=== PATIENT | female | born 1965 | race Caucasian/White ===

== ENCOUNTER 2018-02-17 12:32 | Emergency (ER) | payer MEDICAID, OTHER ==
[2018-02-17] MEDS ORDERED: Clindamycin HCl 150 MG Cap PO ONE (12:33)
[2018-02-17] MEDS ORDERED: cefTRIAXone 1 GM Vial IM ONE (12:37)
[2018-02-17] MEDS ORDERED: Lidocaine 1% 20 ML MDV ONE (12:39)
--- NOTE | 2018-02-17 12:43 | EDM.PDOC ---
ED HPI GENERAL MEDICAL PROBLEM - General Chief Complaint: Lower Extremity Injury/Pain Stated Complaint: RED SWOLLEN FOOT Time Seen by Provider: 02/17/18 12:40 Source of Information: Reports: Patient History Limitations: Reports: No Limitations - History of Present Illness INITIAL COMMENTS - FREE TEXT/NARRATIVE: Jennifer is a 52 year old female who presents to the ED with c/o redness, swelling , and warmth of her right lower extremity. She believes the redness started a few days ago but is unsure. She believes she first noticed it night. Woke up Monday morning and her leg was red. She reports the redness has spread some and is now more tender to touch. She denies any fever, chills, chest pain, shortness of breath. No other symptoms. She is not a diabetic. No obvious open sores. She denies any other complaints. Onset Date: 02/15/18 Duration: Getting Worse Location: Reports: Lower Extremity, Right Quality: Reports: Ache Severity: Moderate Improves with: Reports: None Worsens with: Reports: None Associated Symptoms: Reports: No Other Symptoms. Denies: Confusion, Chest Pain , Cough, cough w sputum, Diaphoresis, Fever/Chills, Headaches, Loss of Appetite , Malaise, Nausea/Vomiting, Rash, Seizure, Shortness of Breath, Syncope, Weakness Right Feet Pain Score (Numeric/FACES): 4 - Related Data Allergies Allergy/AdvReac Type Severity Reaction Status Date / Time Penicillins Allergy Other Verified 02/17/18 12:37 Home Meds: Home Meds Clindamycin HCl 300 mg PO Q6H 8 Days #32 capsule 02/17/18 [Rx] Losartan/Hydrochlorothiazide [Losartan-HCTZ 100-25 MG] 1 tab PO DAILY 02/17/18 [ History] Ranitidine [Zantac] 150 mg PO DAILY 02/17/18 [History] Review of Systems - Review of Systems Review Of Systems: ROS reveals no pertinent complaints other than HPI. ED EXAM, GENERAL - Physical Exam Exam: See Below Exam Limited By: No Limitations General Appearance: Alert, WD/WN, No Apparent Distress Head: Atraumatic, Normocephalic Respiratory/Chest: No Respiratory Distress, Lungs Clear, Normal Breath Sounds, No Accessory Muscle Use, Chest Non-Tender Cardiovascular: Normal Peripheral Pulses, Regular Rate, Rhythm, No Edema, No Gallop, No JVD, No Murmur, No Rub Peripheral Pulses: 1+: Posterior Tibial (R), Dorsalis Pedis (R) Extremities: Normal Range of Motion, Normal Capillary Refill, Pedal Edema, Leg Pain, Increased Warmth, Redness (RLE). No: Sharyn's Sign Neurological: Alert, Oriented, CN II-XII Intact, Normal Cognition, Normal Gait, Normal Reflexes, No Motor/Sensory Deficits Psychiatric: Normal Affect, Normal Mood Skin Exam: Intact, Erythema (RLE), Increased Warmth (RLE) Course - Vital Signs Last Recorded V/S: Last Vital Signs Temp 97.5 F 02/17/18 12:33 Pulse 111 H 02/17/18 12:33 Resp 18 02/17/18 12:33 BP 129/77 02/17/18 12:33 Pulse Ox 100 02/17/18 12:33 - Orders/Labs/Meds Labs: Laboratory Tests 02/17/18 02/17/18 Range/Units 12:37 12:37 WBC 11.1 H (5.0-10.0) 10^3/uL RBC 4.43 (4.00-5.50) 10^6/uL Hgb 13.5 (12.0-16.0) g/dL Hct 41.0 (37.0-47.0) % MCV 92.6 (82.0-94.0) fL MCH 30.5 (27.0-32.0) pg MCHC 32.9 L (33.0-38.0) g/dL RDW Coeff of Mikaela 14.4 (11.0-15.0) % Plt Count 277 (150-400) 10^3/uL Neut % (Auto) 79.4 (35-85) % Lymph % (Auto) 13.6 (10-55) % [place] % (Auto) 5.7 (0-16) % Eos % (Auto) 1.1 (0-5) % Baso % (Auto) 0.2 (0-3) % Neut # (Auto) 8.84 H (1.80-7.00) 10^3/uL Lymph # (Auto) 1.52 (1.00-4.80) 10^3/uL [place] # (Auto) 0.64 (0.00-0.80) 10^3/uL Eos # (Auto) 0.12 (0.00-0.45) 10^3/uL Baso # (Auto) 0.02 10^3/uL Sodium 140 (136-145) mEq/L Potassium 4.1 (3.5-5.0) mEq/L Chloride 102 (98-106) mEq/L Carbon Dioxide 27 (21-32) mmol/L BUN 17 (7-18) mg/dL Creatinine 1.0 (0.6-1.0) mg/dL Est Cr Clr Drug Dosing 60.91 mL/min Estimated GFR (MDRD) 58 L (>=60) mL/min Glucose 97 (75-99) mg/dL Calcium 8.9 (8.4-10.1) mg/dL C-Reactive Protein 23.3 H (0.2-0.8) mg/dL Meds: Medications Discontinued Medications Generic Name Dose Route Start Last Admin Trade Name Freq PRN Reason Stop Dose Admin Ceftriaxone Sodium 1 gm 02/17/18 12:37 02/17/18 12:51 Rocephin IM 02/17/18 12:38 1 gm ONETIME ONE Administration Clindamycin HCl 2 packet 02/17/18 12:57 02/17/18 12:59 Take Home: Clindamycin Hcl 150 Mg, 6 Cap Pack PO 02/17/18 12:58 2 packet ONETIME ONE Administration Lidocaine HCl Confirm 02/17/18 12:39 02/17/18 12:51 Xylocaine 1% Administered 02/17/18 12:40 2 ml Dose Administration 20 ml .ROUTE .STK-MED ONE - Re-Assessments/Exams Free Text/Narrative Re-Assessment/Exam: 02/17/18 12:54 Discussed lab results and recommended treatment with patient. Departure - Departure Time of Disposition: 12:54 Disposition: Home, Self-Care 01 Condition: Good Clinical Impression: Cellulitis and abscess of right leg - Discharge Information *PRESCRIPTION DRUG MONITORING PROGRAM REVIEWED*: Not Applicable *COPY OF PRESCRIPTION DRUG MONITORING REPORT IN PATIENT MATTY: Not Applicable Prescriptions: Clindamycin HCl 300 mg PO Q6H 8 Days #32 capsule Instructions: Cellulitis, Adult, [id number] Referrals: PCP,None [Primary Care Provider] - Forms: ED Department Discharge Additional Instructions: Antibiotic as directed. Remainder of script can be filled at pharmacy on Monday. Rest and push fluids Tylenol or ibuprofen as needed for pain Follow up with PCP for recheck on Monday - Assessment/Plan Plan: PLEASE SEE NURSES NOTE FOR PMH, PSH, SH, & FH.
[2018-02-17] MEDS ORDERED: Take Home: Clindamycin HCl 150 MG Cap, 6 Cap Pack PO ONE (12:57)
== END 2018-02-17 13:03 | disposition home or self-care (01) ==
LOC: CC.ED 12:32
DX: L03.115 Cellulitis of right lower limb (principal); Z88.0 Allergy status to penicillin
CPT/HCPCS: 36415; 80048; 85025; 86140; 96372; 99283; A9270; J0696

== ENCOUNTER 2018-11-10 11:40 | Inpatient (IN) | payer MEDICAID ==
[2018-11-10] MEDS ORDERED: Ondansetron 4 MG/2 ML SDV IV ONE (12:00)
[2018-11-10] MEDS ORDERED: Morphine 10 MG/ML Syringe IV ONE (12:00)
[2018-11-10] MEDS ORDERED: Sodium Chloride 0.9% 1,000 ML IV ONE ×2 (12:00→13:43)
[2018-11-10 12:19] LABS: CHLORIDE,CL 105 mEq/L (98-106); SODIUM,NA 143 mEq/L (136-145)
[2018-11-10] MEDS ORDERED: Morphine 2 MG/ML Syringe ONE (12:28)
[2018-11-10] MEDS ORDERED: Ketorolac 30 MG/ML SDV IVPUSH ONE (13:07)
[2018-11-10] MEDS ORDERED: HYDROmorphone 1 MG/ML Syringe IVPUSH ONE (13:07)
[2018-11-10] MEDS ORDERED: Ondansetron 4 MG/2 ML SDV IVPUSH PRN (13:08)
[2018-11-10] MEDS ORDERED: Sodium Chloride 0.9% 1,000 ML ONE (13:32)
[2018-11-10] MEDS ORDERED: cefTRIAXone 1 GM Vial IVPUSH ONE (14:15)
[2018-11-10] MEDS ORDERED: Ondansetron 4 MG/2 ML SDV IV PRN (19:04)
[2018-11-10] MEDS ORDERED: Acetaminophen/HYDROcodone 325-5 MG Tab PO PRN (19:04)
[2018-11-10] MEDS ORDERED: Sodium Chloride 0.9% 10 ML Syringe FLUSH PRN (19:04)
[2018-11-10] MEDS ORDERED: HYDROmorphone 1 MG/ML Syringe IVPUSH PRN (19:04)
[2018-11-10] MEDS ORDERED: Ketorolac 30 MG/ML SDV IV PRN (19:04)
[2018-11-10] MEDS: Tamsulosin 0.4 MG Cap.ER PO SCH (19:25)
[2018-11-10] MEDS ORDERED: Acetaminophen 500 MG Tab PO ONE (19:33)
[2018-11-11] MEDS: Acetaminophen 325 MG Tab PO PRN ×3 (03:57→23:58)
[2018-11-11] MEDS: Sodium Chloride 0.9% 1,000 ML IV SCH ×2 (06:48→15:20)
[2018-11-11] MEDS: Famotidine 20 MG Tab PO SCH (07:38)
[2018-11-11] MEDS: Hydrochlorothiazide 25 MG Tab PO SCH (07:38)
[2018-11-11] MEDS: Losartan 100 MG Tab PO SCH (07:38)
--- NOTE | 2018-11-11 09:57 | PCM.PN ---
- General Info Date of Service: 11/11/18 Functional Status: Reports: Pain Controlled, Tolerating Diet, Urinating - Review of Systems General: Reports: Fever, Weakness (generalized), Chills HEENT: Reports: No Symptoms Pulmonary: Reports: No Symptoms Cardiovascular: Reports: No Symptoms Gastrointestinal: Reports: No Symptoms. Denies: Abdominal Pain, Nausea, Vomiting Genitourinary: Reports: No Symptoms. Denies: Dysuria, Frequency, Burning, Pain , Urgency, Incontinence, Retention, Flank Pain Musculoskeletal: Reports: No Symptoms Skin: Reports: No Symptoms Neurological: Reports: No Symptoms Psychiatric: Reports: No Symptoms - Patient Data Vitals - Most Recent: Last Vital Signs Temp 100.3 F 11/11/18 08:00 Pulse 93 11/11/18 08:00 Resp 18 11/11/18 08:00 BP 110/61 11/11/18 08:00 Pulse Ox 94 L 11/11/18 08:00 Weight - Most Recent: 206 lb Lab Results Last 24 Hours: Laboratory Results - last 24 hr 11/10/18 11/10/18 11/10/18 Range/Units 11:53 11:53 11:53 WBC 14.6 H (5.0-10.0) 10^3/uL RBC 5.06 (4.00-5.50) 10^6/uL Hgb 15.3 (12.0-16.0) g/dL Hct 46.2 (37.0-47.0) % MCV 91.3 (82.0-94.0) fL MCH 30.2 (27.0-32.0) pg MCHC 33.1 (33.0-38.0) g/dL RDW Coeff of Mikaela 13.9 (11.0-15.0) % Plt Count 296 (150-400) 10^3/uL Neut % (Auto) 86.9 H (35-85) % Lymph % (Auto) 7.0 L (10-55) % [place] % (Auto) 5.5 (0-16) % Eos % (Auto) 0.5 (0-5) % Baso % (Auto) 0.1 (0-3) % Neut # (Auto) 12.66 H (1.80-7.00) 10^3/uL Lymph # (Auto) 1.02 (1.00-4.80) 10^3/uL [place] # (Auto) 0.80 (0.00-0.80) 10^3/uL Eos # (Auto) 0.08 (0.00-0.45) 10^3/uL Baso # (Auto) 0.02 10^3/uL Add Manual Diff Neutrophils % (Manual) (35-85) % Band Neutrophils % (0-5) % Lymphocytes % (Manual) (21-55) % Monocytes % (Manual) (2-12) % Sodium 143 (136-145) mEq/L Potassium 4.4 (3.5-5.0) mEq/L Chloride 105 (98-106) mEq/L Carbon Dioxide 29 (21-32) mmol/L BUN 12 (7-18) mg/dL Creatinine 0.9 (0.6-1.0) mg/dL Est Cr Clr Drug Dosing TNP Estimated GFR (MDRD) > 60 (>=60) mL/min Glucose 116 H (75-99) mg/dL Lactic Acid (0.4-2.0) mmol/L Calcium 9.5 (8.4-10.1) mg/dL Total Bilirubin 0.3 (0.0-1.0) mg/dL AST 16 (15-37) U/L ALT 21 (12-78) U/L Alkaline Phosphatase 106 (46-116) U/L Total Protein 7.4 (6.4-8.2) g/dL Albumin 4.0 (3.4-5.0) g/dL Amylase 68 (25-115) U/L Lipase 120 (73-393) U/L Urine Color Yellow (YELLOW) Urine Appearance Slightly cloudy (CLEAR) Urine pH 7.0 (4.5-8.0) Ur Specific [place] 1.020 (1.003-1.020) Urine Protein Negative (NEGATIVE) mg/dL Urine Glucose (UA) Negative (NEGATIVE) mg/dL Urine Ketones Negative (NEGATIVE) mg/dL Urine Occult Blood Moderate H (NEGATIVE) Urine Nitrite Positive H (NEGATIVE) Urine Bilirubin Negative (NEGATIVE) Urine Urobilinogen 0.2 (0.2-1.0) EU/dL Ur Leukocyte Esterase Small H (NEGATIVE) Urine RBC 0-5 (0-5) /HPF Urine WBC 10-20 H (0-5) /HPF Urine WBC Clumps Occasional H (NOT SEEN) /HPF Ur Epithelial Cells Few H (NOT SEEN) /HPF Urine Bacteria Many H (NOT SEEN) /HPF 11/11/18 11/11/18 11/11/18 Range/Units 06:30 06:30 06:30 WBC 10.9 H (5.0-10.0) 10^3/uL RBC 4.36 (4.00-5.50) 10^6/uL Hgb 13.3 (12.0-16.0) g/dL Hct 40.6 (37.0-47.0) % MCV 93.1 (82.0-94.0) fL MCH 30.5 (27.0-32.0) pg MCHC 32.8 L (33.0-38.0) g/dL RDW Coeff of Mikaela 14.0 (11.0-15.0) % Plt Count 217 (150-400) 10^3/uL Neut % (Auto) (35-85) % Lymph % (Auto) (10-55) % [place] % (Auto) (0-16) % Eos % (Auto) (0-5) % Baso % (Auto) (0-3) % Neut # (Auto) (1.80-7.00) 10^3/uL Lymph # (Auto) (1.00-4.80) 10^3/uL [place] # (Auto) (0.00-0.80) 10^3/uL Eos # (Auto) (0.00-0.45) 10^3/uL Baso # (Auto) 10^3/uL Add Manual Diff Yes Neutrophils % (Manual) 78 (35-85) % Band Neutrophils % 13 H (0-5) % Lymphocytes % (Manual) 4 L (21-55) % Monocytes % (Manual) 5 (2-12) % Sodium 141 (136-145) mEq/L Potassium 4.2 (3.5-5.0) mEq/L Chloride 106 (98-106) mEq/L Carbon Dioxide 28 (21-32) mmol/L BUN 14 (7-18) mg/dL Creatinine 1.3 H (0.6-1.0) mg/dL Est Cr Clr Drug Dosing 48.11 Estimated GFR (MDRD) 43 L (>=60) mL/min Glucose 130 H (75-99) mg/dL Lactic Acid 1.1 (0.4-2.0) mmol/L Calcium 8.4 (8.4-10.1) mg/dL Total Bilirubin (0.0-1.0) mg/dL AST (15-37) U/L ALT (12-78) U/L Alkaline Phosphatase (46-116) U/L Total Protein (6.4-8.2) g/dL Albumin (3.4-5.0) g/dL Amylase (25-115) U/L Lipase (73-393) U/L Urine Color (YELLOW) Urine Appearance (CLEAR) Urine pH (4.5-8.0) Ur Specific [place] (1.003-1.020) Urine Protein (NEGATIVE) mg/dL Urine Glucose (UA) (NEGATIVE) mg/dL Urine Ketones (NEGATIVE) mg/dL Urine Occult Blood (NEGATIVE) Urine Nitrite (NEGATIVE) Urine Bilirubin (NEGATIVE) Urine Urobilinogen (0.2-1.0) EU/dL Ur Leukocyte Esterase (NEGATIVE) Urine RBC (0-5) /HPF Urine WBC (0-5) /HPF Urine WBC Clumps (NOT SEEN) /HPF Ur Epithelial Cells (NOT SEEN) /HPF Urine Bacteria (NOT SEEN) /HPF Jozef Results Last 24 Hours: Microbiology 11/10/18 11:53 Urine Culture - Preliminary Urine, Voided Gram Negative Rods Med Orders - Current: Current Medications Acetaminophen (Tylenol) 650 mg PO Q6H PRN PRN Reason: Fever Last Admin: 11/11/18 03:57 Dose: 650 mg Hydrocodone Bitart/Acetaminophen ([place] 325-5 Mg) 2 tab PO Q4H PRN PRN Reason: Pain (moderate 4-6) Last Admin: 11/11/18 07:38 Dose: 2 tab Famotidine (Pepcid) 20 mg PO DAILY [facility] Last Admin: 11/11/18 07:38 Dose: 20 mg Hydrochlorothiazide (Hydrochlorothiazide) 25 mg PO DAILY [facility] Last Admin: 11/11/18 07:38 Dose: 25 mg Hydromorphone HCl (Dilaudid) 0.5 mg IVPUSH Q2H PRN PRN Reason: Pain (severe 7-10) Sodium Chloride (Normal Saline) 1,000 mls @ 125 mls/hr IV ASDIRECTED [facility] Last Admin: 11/11/18 06:48 Dose: 90 mls/hr Ibuprofen (Motrin) 600 mg PO Q6H PRN PRN Reason: Fever Losartan Potassium (Cozaar) 100 mg PO DAILY [facility] Last Admin: 11/11/18 07:38 Dose: 100 mg Ondansetron HCl (Zofran) 4 mg IVPUSH Q6H PRN PRN Reason: Vomiting Last Admin: 11/10/18 13:36 Dose: 4 mg Sodium Chloride (Saline Flush) 10 ml FLUSH ASDIRECTED PRN PRN Reason: Keep Vein Open Tamsulosin HCl (Flomax) 0.4 mg PO BEDTIME [facility] Last Admin: 11/10/18 19:25 Dose: 0.4 mg Discontinued Medications Acetaminophen (Tylenol Extra Strength) 1,000 mg PO ONETIME ONE Stop: 11/10/18 19:34 Last Admin: 11/10/18 19:49 Dose: 1,000 mg Ceftriaxone Sodium (Rocephin) 1 gm IVPUSH ONETIME ONE Stop: 11/10/18 14:16 Last Admin: 11/10/18 14:29 Dose: 1 gm Hydromorphone HCl (Dilaudid) 1 mg IVPUSH ONETIME ONE Stop: 11/10/18 13:08 Last Admin: 11/10/18 13:41 Dose: 1 mg Sodium Chloride (Normal Saline) 1,000 mls @ 1,000 mls/hr IV ONETIME ONE Stop: 11/10/18 12:59 Last Admin: 11/10/18 12:20 Dose: 1,000 mls/hr Sodium Chloride (Normal Saline) Confirm Administered Dose 1,000 mls @ as directed .ROUTE .STK-MED ONE Stop: 11/10/18 13:33 Last Admin: 11/10/18 16:06 Dose: Not Given Sodium Chloride (Normal Saline) 1,000 mls @ 500 mls/hr IV .BOLUS ONE Stop: 11/10/18 15:42 Last Admin: 11/10/18 19:34 Dose: Not Given Ketorolac Tromethamine (Toradol) 30 mg IVPUSH ONETIME ONE Stop: 11/10/18 13:08 Last Admin: 11/10/18 13:37 Dose: 30 mg Ketorolac Tromethamine (Toradol) 15 mg IV Q6H PRN PRN Reason: Pain (moderate 4-6) Morphine Sulfate (Morphine) 5 mg IV ONETIME ONE Stop: 11/10/18 12:01 Last Admin: 11/10/18 12:25 Dose: 5 mg Morphine Sulfate (Morphine) Confirm Administered Dose 4 mg IV .STK-MED ONE Stop: 11/10/18 12:29 Last Admin: 11/10/18 16:07 Dose: Not Given Morphine Sulfate (Morphine) Confirm Administered Dose 2 mg .ROUTE .STK-MED ONE Stop: 11/10/18 12:29 Last Admin: 11/10/18 16:08 Dose: Not Given Ondansetron HCl (Zofran) 4 mg IV ONETIME ONE Stop: 11/10/18 12:01 Last Admin: 11/10/18 12:15 Dose: 4 mg Ondansetron HCl (Zofran) 4 mg IV Q6H PRN PRN Reason: Nausea/Vomiting - Exam General: Alert, Oriented, Cooperative HEENT: Pupils Equal, Pupils Reactive, Mucous Membr. Moist/[place] Neck: Supple, Trachea Midline, No JVD Lungs: Clear to Auscultation, Normal Respiratory Effort Cardiovascular: Regular Rate, Regular Rhythm, Murmurs (Possible Grade 1/5. Very subtle. I did not hear this yesterday. ) GI/Abdominal Exam: Normal Bowel Sounds, Soft, Non-Tender, No Organomegaly, No Distention, No Abnormal Bruit, No Mass, Pelvis Stable (Female) Exam: Deferred Back Exam: Normal Inspection, Full Range of Motion. No: CVA Tenderness (L), CVA Tenderness (R) Extremities: Normal Inspection, Normal Range of Motion, Non-Tender, No Pedal Edema, Normal Capillary Refill Peripheral Pulses: 2+: Radial (L), Radial (R), Posterior Tibial (L), Posterior Tibial (R) Skin: Warm, Dry, Intact Neurological: No New Focal Deficit Psy/Mental Status: Alert, Normal Affect, Normal Mood - Problem List Review Problem List Initiated/Reviewed/Updated: Yes - My Orders Last 24 Hours: My Active Orders 11/10/18 11:53 CULTURE URINE [RM] Stat 11/10/18 13:08 Ondansetron [Zofran] 4 mg IVPUSH Q6H PRN 11/10/18 16:29 Resuscitation Status Routine 11/10/18 19:04 Patient Status [ADT] Routine Ambulate [RC] .PRN Antiembolic Devices [RC] 1000,2200 Notify Provider Vital Signs [RC] .PRN Oxygen Therapy [RC] .PRN Vital Signs [RC] 0000,0400,0800,1200,1600,2000 Acetaminophen/HYDROcodone [[place] 325-5 MG] 2 tab PO Q4H PRN HYDROmorphone [Dilaudid] 0.5 mg IVPUSH Q2H PRN Sodium Chloride 0.9% [Saline Flush] 10 ml FLUSH ASDIRECTED PRN Antiembolic Hose [OM.PC] Per Unit Routine Saline Lock Insert [OM.PC] Routine 11/10/18 19:33 Acetaminophen [Tylenol] 650 mg PO Q6H PRN 11/10/18 20:00 Tamsulosin [Flomax] 0.4 mg PO BEDTIME 11/10/18 Dinner Regular Diet [DIET] 11/11/18 06:08 Blood Culture x2 Reflex Set [OM.PC] Stat 11/11/18 06:15 Sodium Chloride 0.9% [Normal Saline] 1,000 ml IV ASDIRECTED 11/11/18 06:25 CULTURE BLOOD [BC] Stat 11/11/18 06:30 CULTURE BLOOD [BC] Stat 11/11/18 08:00 Famotidine [Pepcid] 20 mg PO DAILY Losartan [Cozaar] 100 mg PO DAILY hydroCHLOROthiazide 25 mg PO DAILY 11/11/18 08:42 Ibuprofen [Motrin] 600 mg PO Q6H PRN 11/11/18 09:19 EKG Documentation Completion [RC] STAT 11/12/18 05:00 BASIC METABOLIC PANEL,BMP [CHEM] DAILY CBC WITH AUTO DIFF [HEME] DAILY - Plan Plan:: This patient is a 53 year old female that was admitted yesterday for 2mm right uvj ureter stone, UTI, vomiting. The patient developed fever during admit, her last fever was at 4am 100.3. 0900am it was 99.4. The patient reports that she feels tired and generally weak today. She reports that she has had fever and chills and sweats. The patient reports though that her right back pain has resolved. She reports that she no longer feels nauseated and no longer has had vomiting. She reports her abdominal pain has also resolved. She reports no problems or complaints with urination. She reports that she feels like she may have passed the stone. The patient labs yesterday were wbc 14.6, CR 0.9, Today her labs are wbc 10.9, CR 1.3, otherwise unremarkable. The patient wbc has come down. However, today her CR is elevated and now she has fever. Therefore, I have added NS fluids. I have stopped her Toradol and added Tylenol/Motrin for fever tx. I will keep the patient until tomorrow. Patient on abx, will continue the fluids today and fever tx. Will repeat labs tomorrow.
[2018-11-11] MEDS: Ibuprofen 200 MG Tab PO PRN (12:28)
[2018-11-11] MEDS: Tamsulosin 0.4 MG Cap.ER PO SCH (19:45)
[2018-11-11] MEDS: cefTRIAXone 1 GM Vial IVPUSH SCH (19:57)
[2018-11-12] MEDS: Sodium Chloride 0.9% 1,000 ML IV SCH ×4 (01:02→23:35)
[2018-11-12] MEDS: Famotidine 20 MG Tab PO SCH (07:45)
[2018-11-12] MEDS: Losartan 100 MG Tab PO SCH (07:47)
[2018-11-12] MEDS: Hydrochlorothiazide 25 MG Tab PO SCH (07:47)
[2018-11-12] MEDS: Ibuprofen 200 MG Tab PO PRN ×2 (07:49→23:35)
[2018-11-12] MEDS ORDERED: Magnesium Hydroxide 400 MG/5 ML Susp 30 ML Cup PO PRN (08:20)
--- NOTE | 2018-11-12 08:50 | PCM.PN ---
- General Info Date of Service: 11/12/18 Admission Dx/Problem (Free Text): Nephrolithiasis UTI Functional Status: Reports: Pain Controlled, Ambulating, Urinating. Denies: Tolerating Diet - Review of Systems General: Reports: Fever, Weakness, Fatigue, Malaise HEENT: Reports: No Symptoms Pulmonary: Denies: Shortness of Breath, Cough Cardiovascular: Denies: Chest Pain, Edema, Lightheadedness Gastrointestinal: Reports: Nausea. Denies: Abdominal Pain, Vomiting Genitourinary: Reports: No Symptoms Musculoskeletal: Reports: No Symptoms Skin: Reports: No Symptoms Neurological: Reports: No Symptoms - Patient Data Vitals - Most Recent: Last Vital Signs Temp 99.7 F 11/12/18 03:51 Pulse 87 11/12/18 03:51 Resp 16 11/12/18 03:51 BP 131/74 11/12/18 07:47 Pulse Ox 94 L 11/12/18 03:51 Weight - Most Recent: 206 lb I&O - Last 24 Hours: Intake & Output 11/11/18 11/12/18 11/12/18 22:59 06:59 14:59 Intake Total 768 873 684 Balance 768 873 684 Lab Results Last 24 Hours: Laboratory Results - last 24 hr 11/12/18 11/12/18 Range/Units 06:55 06:55 WBC 7.0 (5.0-10.0) 10^3/uL RBC 4.00 (4.00-5.50) 10^6/uL Hgb 12.2 (12.0-16.0) g/dL Hct 37.5 (37.0-47.0) % MCV 93.8 (82.0-94.0) fL MCH 30.5 (27.0-32.0) pg MCHC 32.5 L (33.0-38.0) g/dL RDW Coeff of Mikaela 13.7 (11.0-15.0) % Plt Count 186 (150-400) 10^3/uL Neut % (Auto) 81.7 (35-85) % Lymph % (Auto) 10.3 (10-55) % [place] % (Auto) 6.9 (0-16) % Eos % (Auto) 1.0 (0-5) % Baso % (Auto) 0.1 (0-3) % Neut # (Auto) 5.70 (1.80-7.00) 10^3/uL Lymph # (Auto) 0.72 L (1.00-4.80) 10^3/uL [place] # (Auto) 0.48 (0.00-0.80) 10^3/uL Eos # (Auto) 0.07 (0.00-0.45) 10^3/uL Baso # (Auto) 0.01 10^3/uL Sodium 141 (136-145) mEq/L Potassium 4.2 (3.5-5.0) mEq/L Chloride 108 H (98-106) mEq/L Carbon Dioxide 29 (21-32) mmol/L BUN 8 (7-18) mg/dL Creatinine 1.0 (0.6-1.0) mg/dL Est Cr Clr Drug Dosing 62.54 mL/min Estimated GFR (MDRD) 58 L (>=60) mL/min Glucose 115 H (75-99) mg/dL Calcium 8.2 L (8.4-10.1) mg/dL Jozef Results Last 24 Hours: Microbiology 11/11/18 06:25 Aerobic Blood Culture - Preliminary Blood - Venous - Lab Draw NO GROWTH AFTER 1 DAY Anaerobic Blood Culture - Preliminary NO GROWTH AFTER 1 DAY 11/11/18 06:30 Aerobic Blood Culture - Preliminary Blood - Venous NO GROWTH AFTER 1 DAY Anaerobic Blood Culture - Preliminary NO GROWTH AFTER 1 DAY 11/10/18 11:53 Urine Culture - Preliminary Urine, Voided Gram Negative Rods Med Orders - Current: Current Medications Acetaminophen (Tylenol) 650 mg PO Q6H PRN PRN Reason: Fever Last Admin: 11/11/18 23:58 Dose: 650 mg Hydrocodone Bitart/Acetaminophen ([place] 325-5 Mg) 2 tab PO Q4H PRN PRN Reason: Pain (moderate 4-6) Last Admin: 11/11/18 07:38 Dose: 2 tab Ceftriaxone Sodium (Rocephin) 1 gm IVPUSH Q24H PAWAN Last Admin: 11/11/18 19:57 Dose: 1 gm Famotidine (Pepcid) 20 mg PO DAILY PAWAN Last Admin: 11/12/18 07:45 Dose: 20 mg Hydrochlorothiazide (Hydrochlorothiazide) 25 mg PO DAILY PAWAN Last Admin: 11/12/18 07:47 Dose: 25 mg Hydromorphone HCl (Dilaudid) 0.5 mg IVPUSH Q2H PRN PRN Reason: Pain (severe 7-10) Sodium Chloride (Normal Saline) 1,000 mls @ 125 mls/hr IV ASDIRECTED [facility] Last Admin: 11/12/18 08:38 Dose: 90 mls/hr Ibuprofen (Motrin) 600 mg PO Q6H PRN PRN Reason: Fever Last Admin: 11/12/18 07:49 Dose: 600 mg Losartan Potassium (Cozaar) 100 mg PO DAILY [facility] Last Admin: 11/12/18 07:47 Dose: 100 mg Magnesium Hydroxide (Milk Of Magnesia) 30 ml PO DAILY PRN PRN Reason: Constipation Ondansetron HCl (Zofran) 4 mg IVPUSH Q6H PRN PRN Reason: Vomiting Last Admin: 11/10/18 13:36 Dose: 4 mg Sodium Chloride (Saline Flush) 10 ml FLUSH ASDIRECTED PRN PRN Reason: Keep Vein Open Tamsulosin HCl (Flomax) 0.4 mg PO BEDTIME [facility] Last Admin: 11/11/18 19:45 Dose: 0.4 mg Discontinued Medications Acetaminophen (Tylenol Extra Strength) 1,000 mg PO ONETIME ONE Stop: 11/10/18 19:34 Last Admin: 11/10/18 19:49 Dose: 1,000 mg Ceftriaxone Sodium (Rocephin) 1 gm IVPUSH ONETIME ONE Stop: 11/10/18 14:16 Last Admin: 11/10/18 14:29 Dose: 1 gm Hydromorphone HCl (Dilaudid) 1 mg IVPUSH ONETIME ONE Stop: 11/10/18 13:08 Last Admin: 11/10/18 13:41 Dose: 1 mg Sodium Chloride (Normal Saline) 1,000 mls @ 1,000 mls/hr IV ONETIME ONE Stop: 11/10/18 12:59 Last Admin: 11/10/18 12:20 Dose: 1,000 mls/hr Sodium Chloride (Normal Saline) Confirm Administered Dose 1,000 mls @ as directed .ROUTE .STK-MED ONE Stop: 11/10/18 13:33 Last Admin: 11/10/18 16:06 Dose: Not Given Sodium Chloride (Normal Saline) 1,000 mls @ 500 mls/hr IV .BOLUS ONE Stop: 11/10/18 15:42 Last Admin: 11/10/18 19:34 Dose: Not Given Ketorolac Tromethamine (Toradol) 30 mg IVPUSH ONETIME ONE Stop: 11/10/18 13:08 Last Admin: 11/10/18 13:37 Dose: 30 mg Ketorolac Tromethamine (Toradol) 15 mg IV Q6H PRN PRN Reason: Pain (moderate 4-6) Morphine Sulfate (Morphine) 5 mg IV ONETIME ONE Stop: 11/10/18 12:01 Last Admin: 11/10/18 12:25 Dose: 5 mg Morphine Sulfate (Morphine) Confirm Administered Dose 4 mg IV .STK-MED ONE Stop: 11/10/18 12:29 Last Admin: 11/10/18 16:07 Dose: Not Given Morphine Sulfate (Morphine) Confirm Administered Dose 2 mg .ROUTE .STK-MED ONE Stop: 11/10/18 12:29 Last Admin: 11/10/18 16:08 Dose: Not Given Ondansetron HCl (Zofran) 4 mg IV ONETIME ONE Stop: 11/10/18 12:01 Last Admin: 11/10/18 12:15 Dose: 4 mg Ondansetron HCl (Zofran) 4 mg IV Q6H PRN PRN Reason: Nausea/Vomiting - Exam General: Alert, Oriented HEENT: Mucous Membr. Moist/[place] Neck: Supple Lungs: Clear to Auscultation, Normal Respiratory Effort Cardiovascular: Regular Rate, Regular Rhythm GI/Abdominal Exam: Normal Bowel Sounds, Soft, Non-Tender Extremities: Normal Inspection, No Pedal Edema Skin: Warm, Dry Neurological: No New Focal Deficit - Problem List & Annotations (1) UTI (urinary tract infection) SNOMED Code(s): 42518991 Code(s): N39.0 - URINARY TRACT INFECTION, SITE NOT SPECIFIED Status: Acute Priority: High Current Visit: Yes Qualifiers: Urinary tract infection type: acute cystitis (2) Ureteral calculus SNOMED Code(s): 96142297 Code(s): N20.1 - CALCULUS OF URETER Status: Acute Priority: High Current Visit: Yes - Problem List Review Problem List Initiated/Reviewed/Updated: Yes - My Orders Last 24 Hours: My Active Orders 11/12/18 08:20 Magnesium Hydroxide [Milk of Magnesia] 30 ml PO DAILY PRN 11/12/18 08:34 Patient Status [ADT] Routine 11/12/18 08:42 Strain Urine [RC] ASDIRECTED 11/13/18 05:11 BASIC METABOLIC PANEL,BMP [CHEM] AM C-REACTIVE PROTEIN [CHEM] AM CBC WITH AUTO DIFF [HEME] AM - Assessment Assessment:: UTI Ureteral Stone - Plan Plan:: This patient is a 53 year old female that was admitted yesterday for 2mm right uvj ureter stone, UTI, vomiting. The patient developed fever during admit, her last fever was at 4am 100.3. 0900am it was 99.4. The patient reports that she feels tired and generally weak today. She reports that she has had fever and chills and sweats. The patient reports though that her right back pain has resolved. She reports that she no longer feels nauseated and no longer has had vomiting. She reports her abdominal pain has also resolved. She reports no problems or complaints with urination. She reports that she feels like she may have passed the stone. The patient labs yesterday were wbc 14.6, CR 0.9, Today her labs are wbc 10.9, CR 1.3, otherwise unremarkable. The patient wbc has come down. However, today her CR is elevated and now she has fever. Therefore, I have added NS fluids. I have stopped her Toradol and added Tylenol/Motrin for fever tx. I will keep the patient until tomorrow. Patient on abx, will continue the fluids today and fever tx. Will repeat labs tomorrow. 11-12-2018 Patient nauseated this am. Running low grade fevers. Anorexia. She denies any further abdominal pain. Did have acute pain on Monday, resolved later that night, questions if she passed the stone. Has not been straining her urine so unclear. Urine is positive for gram negative rods. Blood cultures negative. WBC is normal at 7.0, hemoglobin 12. Creatinine 1.0. Does complain of constipation. Will transfer to acute inpatient. Milk of magnesia. Ambulate in the halls. Continue IV Rocephin.
[2018-11-12] MEDS: Tamsulosin 0.4 MG Cap.ER PO SCH (19:25)
[2018-11-12] MEDS: cefTRIAXone 1 GM Vial IVPUSH SCH (19:25)
[2018-11-13 07:35] LABS: CHLORIDE,CL 109 mEq/L (98-106); SODIUM,NA 143 mEq/L (136-145)
[2018-11-13] MEDS: Sodium Chloride 0.9% 1,000 ML IV SCH (07:38)
[2018-11-13] MEDS: Hydrochlorothiazide 25 MG Tab PO SCH (07:39)
[2018-11-13] MEDS: Losartan 100 MG Tab PO SCH (07:39)
[2018-11-13] MEDS: Famotidine 20 MG Tab PO SCH (07:39)
--- NOTE | 2018-11-13 09:10 | PCM.DCSUM1 ---
Discharge Summary - Hospital Course Free Text/Narrative:: Patient presented with complaints of right flank pain, RLQ pain. 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 She vomited x5 prior to presentation. Was tender to the right flank and groin area. Labs indicated an elevated WBC at 14. CMP relatively normal. UA positive. Ct scan was done for stone protocol. Had 2 mm stone at the UVJ with mild hydronephrosis. Was given morphine and zofran with minimal relief of the pain. Admitted for IV fluids, antibiotics and pain control. Diagnosis: Stroke: No Modified [place] Scale: No Symptoms at All Modified [place] Scale Score: 0 - Discharge Data Discharge Date: 11/13/18 Discharge Disposition: Home, Self-Care 01 Condition: Good - Discharge Diagnosis/Problem(s) (1) UTI (urinary tract infection) SNOMED Code(s): 00984343 ICD Code: N39.0 - URINARY TRACT INFECTION, SITE NOT SPECIFIED Status: Acute Priority: High Qualifiers: Urinary tract infection type: acute cystitis (2) Ureteral calculus SNOMED Code(s): 59590241 ICD Code: N20.1 - CALCULUS OF URETER Status: Acute Priority: High - Patient Summary/Data Complications: none Hospital Course: Patient is doing well today. She did develop a fever, abdominal discomfort. Yesterday was nauseated and not eating as well. WBC on admit 14.6, now 5.4. CRP elevated at 9.1. Creatinine did spike at 1.3, IV fluids were added, now stable at 0.9. Unable to determine if has passed stone, was not straining her urine initially. No further pain at this time. Urine culture positive for e coli, sensitive to the Rocephin, will send home on Bactrim. Blood cultures negative, lactic acid negative. Will have patient repeat urine on return visit, KUB at that time. Bactrim BID for 7 days. - Patient Instructions Diet: Usual Diet as Tolerated Activity: As Tolerated - Discharge Plan *PRESCRIPTION DRUG MONITORING PROGRAM REVIEWED*: No *COPY OF PRESCRIPTION DRUG MONITORING REPORT IN PATIENT MATTY: No Prescriptions/Med Rec: Sulfamethoxazole/Trimethoprim [Bactrim Ds Tablet] 1 each PO BID #14 tablet Home Medications: Home Meds Losartan/Hydrochlorothiazide [Losartan-HCTZ 100-25 MG] 1 tab PO DAILY 11/17/18 [ History] Ranitidine [Zantac] 150 mg PO DAILY 02/17/18 [History] Sulfamethoxazole/Trimethoprim [Bactrim Ds Tablet] 1 each PO BID #14 tablet 11/13 [Rx] Patient Handouts: Kidney Stones, Urinary Tract Infection, Adult Referrals: Flower Joseph PA [ED Midlevel Provider] - (Follow up in 7 days for recheck. Lab and xray prior) - Discharge Summary/Plan Comment DC Time >30 min.: No - General Info Date of Service: 11/13/18 Admission Dx/Problem (Free Text: Nephrolithiasis UTI Functional Status: Reports: Pain Controlled, Tolerating Diet, Ambulating - Review of Systems General: Denies: Fever, Weakness, Fatigue HEENT: Reports: No Symptoms Pulmonary: Denies: Shortness of Breath, Cough Cardiovascular: Denies: Chest Pain, Edema, Lightheadedness Gastrointestinal: Denies: Abdominal Pain, Nausea, Vomiting Genitourinary: Reports: No Symptoms Musculoskeletal: Reports: No Symptoms Skin: Reports: No Symptoms Neurological: Reports: No Symptoms - Patient Data Vitals - Most Recent: Last Vital Signs Temp 97.1 F 11/13/18 08:00 Pulse 59 L 11/13/18 08:00 Resp 16 11/13/18 08:00 BP 122/63 11/13/18 08:00 Pulse Ox 96 11/13/18 08:00 Weight - Most Recent: 206 lb I&O - Last 24 hours: Intake & Output 11/12/18 11/13/18 11/13/18 22:59 06:59 14:59 Intake Total 453 562 4656 Balance 358 034 7236 Lab Results - Last 24 hrs: Laboratory Results - last 24 hr 11/13/18 11/13/18 Range/Units 07:00 07:00 WBC 5.4 (5.0-10.0) 10^3/uL RBC 3.78 L (4.00-5.50) 10^6/uL Hgb 11.5 L (12.0-16.0) g/dL Hct 35.4 L (37.0-47.0) % MCV 93.7 (82.0-94.0) fL MCH 30.4 (27.0-32.0) pg MCHC 32.5 L (33.0-38.0) g/dL RDW Coeff of Mikaela 13.6 (11.0-15.0) % Plt Count 149 L (150-400) 10^3/uL Neut % (Auto) 62.5 (35-85) % Lymph % (Auto) 23.2 (10-55) % [place] % (Auto) 10.9 (0-16) % Eos % (Auto) 3.0 (0-5) % Baso % (Auto) 0.4 (0-3) % Neut # (Auto) 3.37 (1.80-7.00) 10^3/uL Lymph # (Auto) 1.25 (1.00-4.80) 10^3/uL [place] # (Auto) 0.59 (0.00-0.80) 10^3/uL Eos # (Auto) 0.16 (0.00-0.45) 10^3/uL Baso # (Auto) 0.02 10^3/uL Sodium 143 (136-145) mEq/L Potassium 4.1 (3.5-5.0) mEq/L Chloride 109 H (98-106) mEq/L Carbon Dioxide 28 (21-32) mmol/L BUN 8 (7-18) mg/dL Creatinine 0.9 (0.6-1.0) mg/dL Est Cr Clr Drug Dosing 69.49 mL/min Estimated GFR (MDRD) > 60 (>=60) mL/min Glucose 99 (75-99) mg/dL Calcium 8.6 (8.4-10.1) mg/dL C-Reactive Protein 9.1 H (0.2-0.8) mg/dL ADRIANA Results - Last 24 hrs: Microbiology 11/11/18 06:25 Aerobic Blood Culture - Preliminary Blood - Venous - Lab Draw NO GROWTH AFTER 2 DAYS Anaerobic Blood Culture - Preliminary NO GROWTH AFTER 2 DAYS 11/11/18 06:30 Aerobic Blood Culture - Preliminary Blood - Venous NO GROWTH AFTER 2 DAYS Anaerobic Blood Culture - Preliminary NO GROWTH AFTER 2 DAYS 11/10/18 11:53 Urine Culture - Final Urine, Voided Escherichia Coli Med Orders - Current: Current Medications Acetaminophen (Tylenol) 650 mg PO Q6H PRN PRN Reason: Fever Last Admin: 11/11/18 23:58 Dose: 650 mg Hydrocodone Bitart/Acetaminophen ([place] 325-5 Mg) 2 tab PO Q4H PRN PRN Reason: Pain (moderate 4-6) Last Admin: 11/11/18 07:38 Dose: 2 tab Ceftriaxone Sodium (Rocephin) 1 gm IVPUSH Q24H [facility] Last Admin: 11/12/18 19:25 Dose: 1 gm Famotidine (Pepcid) 20 mg PO DAILY [facility] Last Admin: 11/13/18 07:39 Dose: 20 mg Hydrochlorothiazide (Hydrochlorothiazide) 25 mg PO DAILY [facility] Last Admin: 11/13/18 07:39 Dose: 25 mg Hydromorphone HCl (Dilaudid) 0.5 mg IVPUSH Q2H PRN PRN Reason: Pain (severe 7-10) Sodium Chloride (Normal Saline) 1,000 mls @ 125 mls/hr IV ASDIRECTED [facility] Last Admin: 11/13/18 07:38 Dose: 125 mls/hr Ibuprofen (Motrin) 600 mg PO Q6H PRN PRN Reason: Fever Last Admin: 11/12/18 23:35 Dose: 600 mg Losartan Potassium (Cozaar) 100 mg PO DAILY [facility] Last Admin: 11/13/18 07:39 Dose: 100 mg Magnesium Hydroxide (Milk Of Magnesia) 30 ml PO DAILY PRN PRN Reason: Constipation Last Admin: 11/12/18 11:57 Dose: 30 ml Ondansetron HCl (Zofran) 4 mg IVPUSH Q6H PRN PRN Reason: Vomiting Last Admin: 11/10/18 13:36 Dose: 4 mg Sodium Chloride (Saline Flush) 10 ml FLUSH ASDIRECTED PRN PRN Reason: Keep Vein Open Tamsulosin HCl (Flomax) 0.4 mg PO BEDTIME [facility] Last Admin: 11/12/18 19:25 Dose: 0.4 mg Discontinued Medications Acetaminophen (Tylenol Extra Strength) 1,000 mg PO ONETIME ONE Stop: 11/10/18 19:34 Last Admin: 11/10/18 19:49 Dose: 1,000 mg Ceftriaxone Sodium (Rocephin) 1 gm IVPUSH ONETIME ONE Stop: 11/10/18 14:16 Last Admin: 11/10/18 14:29 Dose: 1 gm Hydromorphone HCl (Dilaudid) 1 mg IVPUSH ONETIME ONE Stop: 11/10/18 13:08 Last Admin: 11/10/18 13:41 Dose: 1 mg Sodium Chloride (Normal Saline) 1,000 mls @ 1,000 mls/hr IV ONETIME ONE Stop: 11/10/18 12:59 Last Admin: 11/10/18 12:20 Dose: 1,000 mls/hr Sodium Chloride (Normal Saline) Confirm Administered Dose 1,000 mls @ as directed .ROUTE .STK-MED ONE Stop: 11/10/18 13:33 Last Admin: 11/10/18 16:06 Dose: Not Given Sodium Chloride (Normal Saline) 1,000 mls @ 500 mls/hr IV .BOLUS ONE Stop: 11/10/18 15:42 Last Admin: 11/10/18 19:34 Dose: Not Given Ketorolac Tromethamine (Toradol) 30 mg IVPUSH ONETIME ONE Stop: 11/10/18 13:08 Last Admin: 11/10/18 13:37 Dose: 30 mg Ketorolac Tromethamine (Toradol) 15 mg IV Q6H PRN PRN Reason: Pain (moderate 4-6) Morphine Sulfate (Morphine) 5 mg IV ONETIME ONE Stop: 11/10/18 12:01 Last Admin: 11/10/18 12:25 Dose: 5 mg Morphine Sulfate (Morphine) Confirm Administered Dose 4 mg IV .STK-MED ONE Stop: 11/10/18 12:29 Last Admin: 11/10/18 16:07 Dose: Not Given Morphine Sulfate (Morphine) Confirm Administered Dose 2 mg .ROUTE .STK-MED ONE Stop: 11/10/18 12:29 Last Admin: 11/10/18 16:08 Dose: Not Given Ondansetron HCl (Zofran) 4 mg IV ONETIME ONE Stop: 11/10/18 12:01 Last Admin: 11/10/18 12:15 Dose: 4 mg Ondansetron HCl (Zofran) 4 mg IV Q6H PRN PRN Reason: Nausea/Vomiting - Exam General: Reports: Alert, Oriented HEENT: Reports: Mucous Membr. Moist/[place] Neck: Reports: Supple Lungs: Reports: Clear to Auscultation, Normal Respiratory Effort Cardiovascular: Reports: Regular Rate, Regular Rhythm GI/Abdominal Exam: Normal Bowel Sounds, Soft, Non-Tender Extremities: Normal Inspection, No Pedal Edema Skin: Reports: Warm, Dry Neurological: Reports: No New Focal Deficit
== END 2018-11-13 09:30 | disposition home or self-care (01) | DRG 690 ==
LOC: CC.DI 11:40 → UNDOADMOB 14:30 → CC.MS 14:30 → UNDOADMOB 16:29 → CC.MS 11-12 08:34 → OBSVTOIN 11-12 08:36 → INTOOBSV 11-12 08:36
PROVIDERS: ADMIT Nurse Practitioner; ATTEND Family Medicine
DX: N13.6 Pyonephrosis (principal); N20.1 Calculus of ureter; B96.20 Unspecified Escherichia coli [E. coli] as the cause of diseases classified elsewhere; Z79.899 Other long term (current) drug therapy
CPT/HCPCS: 36415; 74176; 80048; 80053; 81001; 82150; 83605; 83690; 85025; 86140; 87040; 87086; 87088; 87186; 93005; 96361; 96374; 96375; 96376; A9270-GY; G0378; J0696; J1170; J1885; J2270; J2405; J7030